=== PATIENT | male | born 1990 | race Caucasian/White ===

== ENCOUNTER 2020-01-22 12:55 | Emergency (ER) | payer MEDICAID ==
[~2020-01-22] VITALS: Ht 165.1 cm; Wt 61.3 kg
[2020-01-22] MEDS ORDERED: TETanus/Pertussis (Acell)/Diphther VAC/PF (Tdap-Adult) 0.5ml syringe IMVAC ONE (13:50)
[2020-01-22] MEDS ORDERED: LIDOcaine 1% W/epiNEPHrine 1:200,000 10ml vial IJ ONE (13:50)
--- NOTE | 2020-01-22 14:19 | NUR ---
While HERI Gomez engaged in suturing right forehead laceration, pt mentioned he also hurt his leg. Laceration, left lua identified and cleaned in preparation of sutures.
--- NOTE | 2020-01-22 14:35 | NUR ---
Jason at bedside.
[2020-01-22 15:00] VITALS: BP 135/78
== END 2020-01-22 15:02 | disposition home or self-care (01) ==
LOC: ER 12:56
DX: S01.81XA Laceration without foreign body of other part of head, initial encounter (principal); S09.90XA Unspecified injury of head, initial encounter; S01.111A Laceration without foreign body of right eyelid and periocular area, initial encounter; S81.812A Laceration without foreign body, left lower leg, initial encounter; W22.8XXA Striking against or struck by other objects, initial encounter; Y93.89 Activity, other specified; Y92.89 Other specified places as the place of occurrence of the external cause; Y99.8 Other external cause status
CPT/HCPCS: 12001; 12013; 90471; 90715; 99283

== ENCOUNTER 2020-02-02 20:30 | Emergency (ER) | payer MEDICAID ==
[~2020-02-02] VITALS: Ht 165.1 cm; Wt 62.7 kg
[2020-02-02 20:37] VITALS: BP 147/87
== END 2020-02-02 21:14 | disposition home or self-care (01) ==
LOC: ER 20:30
DX: S01.81XD Laceration without foreign body of other part of head, subsequent encounter (principal); F12.90 Cannabis use, unspecified, uncomplicated; X58.XXXD Exposure to other specified factors, subsequent encounter
CPT/HCPCS: 99281

== ENCOUNTER 2020-02-14 12:32 | Emergency (ER) | payer MEDICAID ==
[2020-02-14] MEDS ORDERED: SULF1TAB49 PO (13:12)
[2020-02-14 13:29] VITALS: BP 119/76
== END 2020-02-14 13:31 | disposition home or self-care (01) ==
LOC: ER 12:33
DX: T81.41XA Infection following a procedure, superficial incisional surgical site, initial encounter (principal); F12.90 Cannabis use, unspecified, uncomplicated; Z59.0 Homelessness; Z79.2 Long term (current) use of antibiotics; Y83.9 Surgical procedure, unspecified as the cause of abnormal reaction of the patient, or of later complication, without mention of misadventure at the time of the procedure; Y92.89 Other specified places as the place of occurrence of the external cause
CPT/HCPCS: 99283

== ENCOUNTER 2020-05-12 09:51 | Emergency (ER) | payer MEDICAID ==
[~2020-05-12] VITALS: Ht 165.1 cm; Wt 63.6 kg
[2020-05-12] MEDS ORDERED: TETanus/Pertussis (Acell)/Diphther VAC/PF (Tdap-Adult) 0.5ml syringe IMVAC ONE (10:10)
[2020-05-12 10:51] VITALS: BP 124/90
--- NOTE | 2020-05-12 10:52 | NUR ---
RADHA RODARTE GOING TO DO WOUND CARE WITH ORTHO ORDERS.GATHERING SUPPLIES.PT AWARE ABOUT THE PROCEDURE.
[2020-05-12] MEDS ORDERED: IBUP-1984 PO (11:07)
[2020-05-12] MEDS ORDERED: acetaminophen 325mg tablet PO ONE (11:15)
== END 2020-05-12 11:17 | disposition home or self-care (01) ==
LOC: ER 09:52
DX: S62.646A Nondisplaced fracture of proximal phalanx of right little finger, initial encounter for closed fracture (principal); M79.641 Pain in right hand; F12.90 Cannabis use, unspecified, uncomplicated; Z59.0 Homelessness; Z79.899 Other long term (current) drug therapy; X58.XXXA Exposure to other specified factors, initial encounter; Y93.89 Activity, other specified; Y92.89 Other specified places as the place of occurrence of the external cause; Y99.8 Other external cause status
CPT/HCPCS: 29125; 29130; 73130; 90471; 90715; 99283

== ENCOUNTER 2020-06-01 17:09 | Emergency (ER) | payer MEDICAID ==
[~2020-06-01] VITALS: Ht 165.1 cm; Wt 63.2 kg
[2020-06-01 17:20] VITALS: BP 154/89
[2020-06-01] MEDS ORDERED: ACET-1025 PO (18:02)
[2020-06-01] MEDS ORDERED: CEPH250T PO (18:02)
== END 2020-06-01 18:16 | disposition home or self-care (01) ==
LOC: ER 17:09
DX: T20.02XA Burn of unspecified degree of lip(s), initial encounter (principal); S00.511A Abrasion of lip, initial encounter; F12.90 Cannabis use, unspecified, uncomplicated; Z59.0 Homelessness; Z79.2 Long term (current) use of antibiotics; X08.8XXA Exposure to other specified smoke, fire and flames, initial encounter; Y93.89 Activity, other specified; Y92.89 Other specified places as the place of occurrence of the external cause; Y99.8 Other external cause status
CPT/HCPCS: 99283

== ENCOUNTER 2021-01-09 16:21 | Emergency (ER) | payer MEDICAID ==
[~2021-01-09] VITALS: Ht 165.1 cm; Wt 61.4 kg
[2021-01-09 16:58] VITALS: BP 137/83
== END 2021-01-09 19:09 | disposition left against medical advice (07) ==
LOC: ER 16:22
DX: H57.10 Ocular pain, unspecified eye (principal); Z53.21 Procedure and treatment not carried out due to patient leaving prior to being seen by health care provider

== ENCOUNTER 2021-03-06 12:26 | Emergency (ER) | payer MEDICAID ==
[~2021-03-06] VITALS: Ht 165.1 cm; Wt 62.5 kg
[2021-03-06 12:45] VITALS: BP 111/64
== END 2021-03-06 18:37 | disposition left against medical advice (07) ==
LOC: ER 12:27
DX: R19.7 Diarrhea, unspecified (principal); R10.9 Unspecified abdominal pain; Z53.21 Procedure and treatment not carried out due to patient leaving prior to being seen by health care provider

== ENCOUNTER 2022-08-23 17:07 | Emergency (ER) | payer MEDICAID ==
[~2022-08-23] VITALS: Ht 167.6 cm; Wt 71.8 kg
--- NOTE | 2022-08-23 19:04 | NUR ---
PT TO CT.
--- NOTE | 2022-08-23 19:10 | NUR ---
PT RETURN FROM CT.
[2022-08-23 19:12] LABS: CLARITY,URINE CLEAR (Clear); COLOR,URINE YELLOW (Yellow); GLUCOSE, URINE NEGATIVE (Neg); KETONES,URINE NEGATIVE (Neg); LEUKOCYTE ESTERASE ,URINE NEGATIVE (Neg); NITRITES, URINE NEGATIVE (Neg); OCCULT BLOOD,URINE NEGATIVE (Neg); PH,URINE 6.5 (4.8-8.0); PROTEIN,URINE NEGATIVE (Neg); UA COLLECTION TYPE CLN CATCH MIDSTREAM; UROBILINOGEN,URINE 0.2 E.U/dL (0.2-1.0)
[2022-08-23 19:30] LABS: BASOPHILS # (AUTO) 0.1 X10'3 (0-0.2); EOSINOPHILS # (AUTO) 0.1 X10'3 (0-0.9); EOSINOPHILS % (AUTO) 0.9 % (0-6); HEMATOCRIT 42.3 % (42.0-52.0); HEMOGLOBIN 14.5 g/dl (14.0-17.9); LYMPHOCYTES # (AUTO) 2.9 X10'3 (1.1-4.8); LYMPHOCYTES % (AUTO) 38.6 % (21-51); MEAN CORPUSCULAR HEMOGLOBIN 30.7 PG (27.0-31.0); MEAN CORPUSCULAR HGB CONC 34.4 g/dL (33.0-36.5); MEAN CORPUSCULAR VOLUME 89.2 FL (78-98); MEAN PLATELET VOLUME 7.3 FL (7.4-10.4); MONOCYTES # (AUTO) 0.6 X10'3 (0-0.9); MONOCYTES % (AUTO) 7.9 % (2-12); NEUTROPHILS # (AUTO) 3.8 X10'3 (1.8-7.7); NEUTROPHILS % (AUTO) 51.6 % (42-75); PLATELET COUNT 296 X10'3 (140-440); RED BLOOD COUNT 4.74 X10'6 (4.70-6.10); RED CELL DISTRIBUTION WIDTH 12.7 % (11.5-14.5); WHITE BLOOD COUNT 7.4 X10'3 (4.5-11.0)
[2022-08-23 19:42] LABS: ALANINE AMINOTRANSFERASE 47 U/L (12-78); ALBUMIN 3.7 G/DL (3.4-5.0); ALBUMIN/GLOBULIN RATIO 1.2 (1.1-1.5); ALKALINE PHOSPHATASE 77 IU/L (46-116); ANION GAP 9 (8-16); ASPARTATE AMINO TRANSFERASE 28 U/L (10-37); BILIRUBIN,TOTAL 0.2 MG/DL (0.1-1.0); BLOOD UREA NITROGEN 23 MG/DL (7-18); BUN/CREATININE RATIO 25.8 (5.4-32.0); CALCIUM 8.5 MG/DL (8.5-10.1); CHLORIDE 103 MMOL/L (99-107); CREATININE 0.89 MG/DL (0.60-1.10); GLUCOSE 99 MG/DL (70-104); LIPASE 114 U/L (73-393); POTASSIUM 3.4 MMOL/L (3.5-5.1); SODIUM 139 MMOL/L (135-145); TOTAL CARBON DIOXIDE 26.6 MMOL/L (24-32); TOTAL PROTEIN 6.7 G/DL (6.4-8.2); eGFR > 90 ML/MIN
[2022-08-23 21:31] VITALS: BP 130/80
== END 2022-08-23 21:33 | disposition home or self-care (01) ==
LOC: ER 17:07
DX: R10.31 Right lower quadrant pain (principal); F12.90 Cannabis use, unspecified, uncomplicated; Z59.00 Homelessness unspecified; Z79.899 Other long term (current) drug therapy
CPT/HCPCS: 36415; 74176; 80053; 81003; 83690; 85025; 99284

== ENCOUNTER 2023-02-01 16:21 | Emergency (ER) | payer MEDICAID ==
[~2023-02-01] VITALS: Ht 165.1 cm; Wt 65.9 kg
[2023-02-01 16:23] VITALS: BP 110/64
== END 2023-02-01 18:14 | disposition left against medical advice (07) ==
LOC: ER 16:21
DX: R68.84 Jaw pain (principal); Z53.21 Procedure and treatment not carried out due to patient leaving prior to being seen by health care provider
CPT/HCPCS: 99281